=== PATIENT | male | born 1975 | race Caucasian/White ===

== ENCOUNTER 2016-10-14 02:20 | Emergency (ER) | payer BC | END 2016-10-14 04:55 | disposition home or self-care (01) | LOC: ER1 02:20 | DX: J40 Bronchitis, not specified as acute or chronic (principal); J02.9 Acute pharyngitis, unspecified; F17.290 Nicotine dependence, other tobacco product, uncomplicated | CPT/HCPCS: 87081; 87880; 99283 ==